=== PATIENT | male | born 1980 | race Caucasian/White ===

== ENCOUNTER 2020-11-22 15:47 | Outpatient (CLI) | payer BC | END 2020-11-22 23:59 | disposition home or self-care (01) | LOC: LAB.N 15:47 | PROVIDERS: ATTEND Nurse Practitioner | DX: U07.1 COVID-19 (principal) ==

== ENCOUNTER 2023-11-26 08:00 | Outpatient (CLI) | payer BC | END 2023-11-26 23:58 | disposition home or self-care (01) | LOC: LAB.S 08:00 | PROVIDERS: ATTEND Physician Assistant Medical | DX: J02.9 Acute pharyngitis, unspecified (principal) | CPT/HCPCS: 87070 ==